=== PATIENT | female | born 1960 | race Caucasian/White ===

== ENCOUNTER → 2019-06-24 15:43 | Outpatient (CLI) | payer OTHER, MEDICAID, SELFPAY ==
[2019-06-24 16:52] LABS: Appearance Urine UA CLEAR; Bilirubin Urine UA NEGATIVE (NEGATIVE); Color Urine UA YELLOW; Glucose Urine UA NEGATIVE (Negative); Ketones Urine UA NEGATIVE (NEGATIVE); Leukocyte Esterase Urine UA NEGATIVE (NEGATIVE); Nitrite Urine UA POSITIVE (Negative); Occult Blood Urine UA 1+ (Negative); Protein Urine UA NEGATIVE (Negative); Specific Gravity Urine UA >=1.030 (1.000-1.035); Urobilinogen Urine UA 0.2 E.U./dL (0.2)
[2019-06-24 16:52] LABS: Add Manual Diff / Slide Review NO; Basophils Absolute Auto 100 /uL (0-100); Basophils Percent Auto 0.9 % (0-2); Eosinophils Absolute Auto 100 /uL (0-450); Eosinophils Percent Auto 0.9 % (2-4); Hematocrit 43.1 % (36-46); Hemoglobin 14.7 g/dL (12.0-16.0); Lymphocytes Absolute Auto 1900 /uL (1100-4500); Lymphocytes Percent Auto 29.2 % (25-40); Mean Corpuscular HGB Conc 34.1 % (30-36); Mean Corpuscular Hemoglobin 29.6 PG (26-34); Mean Corpuscular Volume 86.6 fL (80-100); Monocytes Absolute Auto 500 /uL (0-900); Monocytes Percent Auto 8.1 % (3-14); Neutrophils Absolute Auto 3900 /uL (1500-7000); Neutrophils Percent Auto 60.9 % (50-75); Platelet Count 248 X10^3/uL (150-400); Red Blood Cell Count 4.97 X10^6/uL (4.0-5.2); Red Cell Distribution Width 14.3 % (11.6-14.8); White Blood Cell Count 6.4 X10^3/uL (4.5-11.0)
[2019-06-24 17:02] LABS: Bacteria Urine Many (>30); Culture Indicated Urine Specimen Cultured; Mucus Urine 1+ (Negative); RBC Urine 1-5/HPF (0-5/HPF); Squamous Epithelial Cell Urine 1-5 /HPF (0-5/HPF); WBC Urine 0-1/HPF (0-5/HPF)
[2019-06-24 17:04] LABS: Hemoglobin A1C% w Est Avg Glu 5.2 % (4.0-6.0)
[2019-06-24 17:05] LABS: Alanine Aminotransferase 20 IU/L (<35); Albumin 4.5 g/dL (3.5-5.0); Albumin Globulin Ratio 1.3 (1.0-2.8); Alkaline Phosphatase 60 U/L (38-126); Aspartate Aminotransferase 23 IU/L (14-36); BUN Creatinine Ratio 26.7 (6-22); Bilirubin Total 0.6 mg/dL (0.2-1.3); Blood Urea Nitrogen 16 mg/dL (7-17); Calcium 9.6 mg/dL (8.4-10.2); Carbon Dioxide 29 mmol/L (22-32); Chloride 106 mmol/L (98-107); Cholesterol 260 mg/dL (140-199); Estimated Glomerular Filt Rate > 60.0 mL/min (>60); Globulin 3.6 g/dL (1.7-4.1); Glucose 97 mg/dL (80-110); HDL Cholesterol 34 mg/dL (40-60); HEMOLYSIS 17 (0-50); LDL Cholesterol Calculated 172 mg/dL (<100); Potassium 3.9 mmol/L (3.4-5.1); Sodium 142 mmol/L (137-145); Total Protein 8.1 g/dL (6.3-8.2); Triglycerides 270 mg/dL (35-150)
[2019-06-24 17:35] LABS: TSH w/ Reflex to FT4 2.42 uIU/mL (0.47-4.68)
== END ==
PROVIDERS: PCP Family Medicine; Visit Provider Family Medicine
DX: B37.9 Candidiasis, unspecified (principal); F41.9 Anxiety disorder, unspecified; R07.89 Other chest pain; Z76.89 Persons encountering health services in other specified circumstances
CPT/HCPCS: 36415; 80053; 80061; 81003; 81015; 83036; 84443; 85025; 86787; 87077; 87086; 87186

== ENCOUNTER → 2019-08-07 12:59 | Outpatient (CLI) | payer OTHER, MEDICAID, SELFPAY ==
--- NOTE | 2019-08-07 13:02 | DI.RAD.S_ITS ---
PROCEDURE: FL BARIUM SWALLOW W SPEECH INDICATIONS: Per Speech Therapist Evaluation TECHNIQUE: Examination was conducted in conjunction with speech pathology per standard protocol. In the lateral projection, filming was performed of the patient swallowing. AP projection filming may also be performed with patient swallowing. COMPARISON: None. FINDINGS: Function: The oral preparatory phase appears normal, with proper containment. The subsequent oral propulsive phase, pharyngeal phase, and esophageal phase of swallowing also appear normal with all proffered substances. No laryngotracheal penetration or aspiration. No pathologic vallecular pooling. Morphology: No cricopharyngeal bar is identified. No cervical esophageal webs. No Zenker's diverticulum. No strictures. Prior anterior fusion plate mid cervical spine, partially visualized. IMPRESSION: Normal examination. Please also refer to the dedicated speech therapy swallowing evaluation report which will be independently generated. Dictated by: Nitin Toledo M.D. on 08/07/2019 at 14:49 Approved by: Nitin Toledo M.D. on 08/07/2019 at 14:50
--- NOTE | 2019-08-07 15:28 | ST.SWALLOW ---
Visit Care Team Role Provider Type Geovani Bell DO Attending Provider Physician Primary Care Provider Referring Provider Specialty: [facility] Address: [address] [place] [address], [facility] Email: [email or web address] Modified Barium Swallow Study AIR VALUE TESTER Modified Barium Swallow Study Start: 08/08/19 08:09 Freq: Status: Active Protocol: Document 08/07/19 08:09 TLC (Rec: 08/08/19 08:12 TLC [id number]) Modified Barium Swallow Study Total Time Visit Start Time 13:30 Visit Stop Time 13:45 Total Visit Minutes [address] Geovani Bell Reason for Referral Dysphagia Setting Setting Outpatient Care Patient Information Identification Type Name Patient History Patient has been seen twice for outpatient speech therapy related to dysphagia and mild cognitive impairment. Specifically, she complains of coughing/choking on both liquids and solids. She had ACDF surgery in 2003; however, onset of symptoms began within the last year. Subjective Observations Patient arrived on time and was cooperative during the study. Patient Positioning Position View Lateral Imaging Lateral View Textures Administered Trials Presented Thin Liquid via Spoon,Thin Liquid via Cup,[place] Liquid via Spoon,[place] Liquid via Cup,Pudding Thick Liquid via Spoon,Dysphagia Blenderized Textures,Regular Textures Oral Phase Source: MBSIMP (TM) (C) Bolus Specific Scoring Grid Lip Closure No Impairment (WNL) Tongue Control During Bolus Hold Minimal Impairment Bolus Prep/Mastication No Impairment (WNL) Oral Residue No Impairment (WNL) Additional Oral Phase Observations Observed escape of thin liquid bolus to floor of mouth during bolus hold. No posterior escape of bolus. Mastication was timely and efficient; however, two swallows were required to clear 1/2 shortbread cookie. Initiation of pharyngeal swallow occurred at posterior angle of the ramus with the exception of consecutive thin liquids sips during which swallow initiation occurred when the bolus head reached the valleculae. Pharyngeal Phase Source: MBSIMP (TM) (C) Bolus Specific Scoring Grid Soft Palate Elevation No Impairment (WNL) Tongue Base Strength/Range of Motion No Impairment (WNL) Residue Along the Tongue Base Yes: Trace Laryngeal Elevation No Impairment (WNL) Anterior Hyoid Movement No Impairment (WNL) Epiglottic Range of Motion No Impairment (WNL) Vallecular Residue Yes: collection Laryngeal Vestibular Closure No Impairment (WNL) Pharyngeal Stripping Wave No Impairment (WNL) Upper Esophageal Sphincter Opening No Impairment (WNL) Residue in the Pyriform Sinuses No Additional Pharyngeal Phase Observations Soft palate elevation, laryngeal elevation, anterior hyoid excursion, epiglottic movement and laryngeal vestibular closure were all complete. A collection of residue appeared in the valleculae during larger sips and consecutive sips of liquids. Residue cleared with subsequent swallows. No pyriform sinus residue was observed; however trace residue lined the posterior pharyngeal wall at the level of C4-5 where prior anterior fusion plate was observed. Distention and duration of pharyngoesophageal segment opening were complete. No penetration or aspiration was observed during the study consistent with a PAS Scale Score of 1. A/P View Esophageal Observations Esophageal Function Not observed Clinical Impressions Findings Patient has functional swallow with mild pharyngeal residue in the valleculae and along posterior pharyngeal wall. No significant findings to explain patient's symptoms of coughing/choking on solids/ liquids. Recommendations Diet Liquids Order Thin Diet Order Regular Medication Recommendation As Tolerated Aspiration Precautions Recommended Precautions Upright at 90 Degrees,Small Bites/Sips,Double Swallow Treatment Plan Additional Recommendations/Comments Instructed patient to follow- up with outpatient ST for 1-2 sessions focused on education, review of results and recommended compensatory strategies.
== END ==
PROVIDERS: PCP Family Medicine; Referring Provider Family Medicine; Visit Provider Family Medicine
DX: R47.1 Dysarthria and anarthria (principal)
CPT/HCPCS: 74230; 92611

== ENCOUNTER 2019-08-14 12:30 | Outpatient (RCR) | payer OTHER, MEDICAID, SELFPAY ==
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
--- NOTE | 2019-08-22 14:24 | ST.OPTN ---
Visit Care Team Role Provider Type Geovani Bell DO Attending Provider Physician Primary Care Provider Referring Provider Address: [address] [place] [address], [id number] CREAM RIPENER Treatment Note CREAM RIPENER Treatment Note Start: 07/19/19 10:17 Freq: Status: Active Protocol: Document 08/22/19 14:23 LL (Rec: 08/22/19 14:24 LL [id number]) Speech Pathology Treatment Note Setting Treatment Setting Outpatient Care Visit Type Note Type Administrative Note General Information General Information Speech therapy will be placed on hold due to COVID-19 concerns. Will reschedule when deemed appropriate. CREAM RIPENER called patient to discuss therapy being placed on hold. Patient verbalized understanding and agreement with treatment plan.
--- NOTE | 2019-11-07 13:57 | ST.OPTN ---
Visit Care Team Role Provider Type Geovani Bell DO Attending Provider Physician Primary Care Provider Referring Provider Address: [address] [place] [address], [id number] STREETCAR OPERATOR Treatment Note STREETCAR OPERATOR Treatment Note Start: 07/19/19 10:17 Freq: Status: Active Protocol: Document 11/07/19 13:54 LL (Rec: 11/07/19 13:57 LL [id number]) Speech Pathology Treatment Note Visit Type Note Type Administrative Note General Information General Information Rebecca requested to place ST services on hold via phone call with scheduling staff on 10/31/2019. Rebecca stated that she is busy and would like to consult with her doctor before coming back to speech therapy.
== END 2020-07-13 14:57 ==
LOC: SP 12:30
PROVIDERS: PCP Family Medicine; Referring Provider Family Medicine; Visit Provider Family Medicine
DX: R47.1 Dysarthria and anarthria (principal)
CPT/HCPCS: 92507; 92526; 92610

== ENCOUNTER → 2019-09-25 16:26 | Outpatient (CLI) | payer OTHER, MEDICAID, SELFPAY ==
[2019-09-25 18:48] LABS: Influenza A - CEPHEID Flu A NEGATIVE (NEGATIVE); Influenza B - CEPHEID Flu B NEGATIVE (NEGATIVE)
[2019-09-27 09:03] LABS: COVID19 Sendout Not Detected (Not Detected)
== END ==
PROVIDERS: PCP Family Medicine; Visit Provider Family Medicine
DX: Z11.9 Encounter for screening for infectious and parasitic diseases, unspecified (principal)
CPT/HCPCS: 87502; 87635

== ENCOUNTER → 2019-11-28 08:05 | Outpatient (CLI) | payer OTHER, MEDICAID, SELFPAY ==
--- NOTE | 2019-11-28 08:07 | DI.US.S_ITS ---
ULTRASOUND OF LEFT BREAST AND AXILLA: 11/28/2019 CLINICAL: Patient returns today to evaluate a focal asymmetry in the left breast. Comparison is made to exam dated: 11/28/2019 [facility]. Color flow and real-time ultrasound of the left breast axilla were performed. Domingo scale images of the real-time examination were reviewed. There is a 1.3 cm x 1.1 cm x 0.4 cm irregular mass with an indistinct margin in the left breast at 8 o'clock middle depth 7 cm from the nipple. This irregular mass is hypoechoic. This likely correlates with mammography findings of possible solitary dilated duct. Color flow imaging demonstrates that there is adjacent vascularity. No significant abnormalities were seen sonographically in the left axilla. IMPRESSION: SUSPICIOUS OF MALIGNANCY The 1.3 cm x 1.1 cm x 0.4 cm irregular mass in the left breast likely correlates with mammographic abnormality and may represent a solitary dilated duct with internal solid component is suspicious of malignancy. An ultrasound guided biopsy is recommended. Findings and recommendations were discussed with the patient during today's visit by Dr. Martines. This exam was interpreted at Station ID: [id number]. Electronically Signed By: Ko Odell M.D. aty/:11/28/2019 11:38:48 letter sent: Biopsy Required Ultrasound BI-RADS: 4 Suspicious for malignancy
--- NOTE | 2019-11-28 08:07 | DI.US.S_ITS ---
ULTRASOUND OF RIGHT BREAST AND AXILLA: 11/28/2019 CLINICAL: Palpable right breast lump. Also, 2 findings on mammo. Comparison is made to exam dated: 11/28/2019 [facility]. Color flow and real-time ultrasound of the right breast axilla were performed. Domingo scale images of the real-time examination were reviewed. There is a 1 cm x 2.2 cm x 0.5 cm irregular mass with an indistinct and angular margins in the right breast at 7 o'clock anterior depth 3 cm from the nipple. This irregular mass is hypoechoic. This correlates with mammography findings. Color flow imaging demonstrates that there is vascularity present. There also is a benign 0.6 cm x 0.4 cm oval intradermal mass in the right axillary tail with the long axis parallel to the skin. This oval mass is hypoechoic. This correlates as palpated, with mammography findings, and area of clinical concern. Color flow imaging demonstrates that there is no vascularity present. Additionally, there is no sonographic correlate or abnormalities seen in the right breast at 6 o'clock middle depth to correspond with loosely grouped coarse calcifications seen on today's mammogram. No significant abnormalities were seen sonographically in the right axilla. IMPRESSION: SUSPICIOUS OF MALIGNANCY The 1 cm x 2.2 cm x 0.5 cm irregular mass in the right breast at 7 o'clock anterior depth may represent solid components within a dilated duct or extraductal solid mass and is suspicious of malignancy. An ultrasound guided biopsy is recommended. The 0.6 cm x 0.4 cm oval mass in the right axillary tail is intradermal in location and benign. However, recommend continued clinical follow up. There is no sonographic abnormality to correlate with loosely grouped coarse calcifications in the middle to posterior depth of the inferior right breast and is probably benign. A 6 months follow up right mammogram is recommended. Findings and recommendations were discussed with the patient during today's visit by Dr. Martines. This exam was interpreted at Station ID: [id number]. Electronically Signed By: Ko Odell M.D. aty/:11/28/2019 11:50:15 letter sent: Biopsy Required Ultrasound BI-RADS: 4 Suspicious for malignancy
--- NOTE | 2019-11-28 08:07 | DI.MG.S_ITS ---
BILATERAL DIGITAL DIAGNOSTIC MAMMOGRAM 3D/2D: 11/28/2019 CLINICAL: Right skin lesion, bilateral breast pain. Baseline. Family history of breast cancer. No prior exams were available for comparison. There are scattered fibroglandular elements in both breasts. There is a 1 cm x 1.5 cm irregular equal density mass with coarse calcifications in the right breast at 6 o'clock anterior depth. There also is a 0.7 cm oval focal asymmetry in the right axillary tail. This correlates as palpated and with area of clinical concern. This focal asymmetry appears to be a skin lesion. Additionally, there are grouped coarse calcifications in the right breast at 6 o'clock middle depth. There is an equal density solitary duct in the left breast at 7 o'clock anterior depth. No other significant masses or calcifications are seen in either breast. IMPRESSION: INCOMPLETE: NEEDS ADDITIONAL IMAGING EVALUATION 1. The 1 cm x 1.5 cm irregular equal density mass in the right breast at 6 o'clock anterior depth is indeterminate. An ultrasound is recommended for further evaluation and is scheduled to immediately follow this study. 2. The 0.7 cm oval focal asymmetry in the right axillary tail most likely is a skin lesion and is indeterminate. An ultrasound is recommended for further evaluation and is scheduled to immediately follow this study. 3. The grouped coarse calcifications in the right breast at 6 o'clock middle depth are probably benign. Follow up right mammogram in 6 months is recommended. 4. The equal density duct in the left breast at 7 o'clock anterior depth is indeterminate. An ultrasound is recommended for further evaluation and is scheduled to immediately follow this study. This exam was interpreted at Station ID: [id number]. NOTE: For mammograms, a report in lay terms will be sent to the patient. Approximately 15% of breast malignancies will not be visualized mammographically. In the management of a palpable breast mass, a negative mammogram must not discourage biopsy of a clinically suspicious lesion. Electronically Signed By: Ko Odell M.D. aty/:11/28/2019 11:22:36 ACR BI-RADS Category 0: Incomplete [id number]
== END ==
PROVIDERS: PCP Family Medicine; Referring Provider Family Medicine; Visit Provider Family Medicine
DX: R92.8 Other abnormal and inconclusive findings on diagnostic imaging of breast (principal); N64.4 Mastodynia; N63.24 Unspecified lump in the left breast, lower inner quadrant; N63.13 Unspecified lump in the right breast, lower outer quadrant; Z80.3 Family history of malignant neoplasm of breast
CPT/HCPCS: 76642; 77066; G0279

== ENCOUNTER → 2019-12-17 11:43 | Outpatient (CLI) | payer OTHER, MEDICAID, SELFPAY ==
[2019-12-17 12:06] LABS: WBC Urine None Seen (0-5/HPF)
[2019-12-17 12:58] LABS: Hemoglobin A1C% w Est Avg Glu 5.6 % (4.0-6.0)
[2019-12-17 13:05] LABS: Appearance Urine UA CLEAR; Bilirubin Urine UA NEGATIVE (NEGATIVE); Color Urine UA YELLOW; Glucose Urine UA NEGATIVE (Negative); Ketones Urine UA NEGATIVE (NEGATIVE); Leukocyte Esterase Urine UA NEGATIVE (NEGATIVE); Nitrite Urine UA NEGATIVE (Negative); Occult Blood Urine UA 1+ (Negative); Protein Urine UA NEGATIVE (Negative); Specific Gravity Urine UA 1.025 (1.000-1.035); Urobilinogen Urine UA 0.2 E.U./dL (0.2)
[2019-12-17 13:08] LABS: Alanine Aminotransferase 18 IU/L (<35); Albumin 4.4 g/dL (3.5-5.0); Albumin Globulin Ratio 1.5 (1.0-2.8); Alkaline Phosphatase 59 U/L (38-126); Aspartate Aminotransferase 23 IU/L (14-36); BUN Creatinine Ratio 26.3 (6-22); Bilirubin Total 0.7 mg/dL (0.2-1.3); Blood Urea Nitrogen 15 mg/dL (7-17); Calcium 10.1 mg/dL (8.4-10.2); Carbon Dioxide 28 mmol/L (22-32); Chloride 104 mmol/L (98-107); Cholesterol 278 mg/dL (140-199); Estimated Glomerular Filt Rate > 60.0 mL/min (>60); Globulin 2.9 g/dL (1.7-4.1); Glucose 89 mg/dL (80-110); HDL Cholesterol 34 mg/dL (40-60); HEMOLYSIS < 15 (0-50); Potassium 4.2 mmol/L (3.4-5.1); Sodium 139 mmol/L (137-145); Total Protein 7.3 g/dL (6.3-8.2); Triglycerides 457 mg/dL (35-150)
[2019-12-17 13:19] LABS: Bacteria Urine Occasional (0-1); Culture Indicated Urine Cult Not Indicated; RBC Urine 0-1/HPF (0-5/HPF)
[2019-12-17 13:51] LABS: TSH w/ Reflex to FT4 3.14 uIU/mL (0.47-4.68)
== END ==
PROVIDERS: PCP Family Medicine; Referring Provider Family Medicine; Visit Provider Family Medicine
DX: E78.5 Hyperlipidemia, unspecified (principal); R32 Unspecified urinary incontinence
CPT/HCPCS: 36415; 80053; 80061; 81001; 83036; 84443

== ENCOUNTER → 2019-12-23 07:59 | Outpatient (CLI) | payer OTHER, MEDICAID, SELFPAY ==
--- NOTE | 2019-12-23 | DI.MG.S_ITS ---
UNILATERAL LEFT DIGITAL DIAGNOSTIC MAMMOGRAM POST-NEEDLE BIOPSY: 12/23/2019 CLINICAL: Left breast mass. Post clip placement. Comparison is made to exams dated: 12/23/2019 ultrasound biopsy, 11/28/2019 ultrasound, and 11/28/2019 mammogram - [facility]. There are scattered fibroglandular elements in left breast. There is a marker clip in the position of biopsy in the left breast at 8 o'clock middle depth. This marker clip placement is at the biopsy site, confirmed with US after the biopsy was performed. However, the mammogram from 11/28/19 appears to show the area of linear mammographic concern to be positioned more anteriorly than the site of US biopsy, with reference to the Vision marker. IMPRESSION: POST PROCEDURE MAMMOGRAM FOR MARKER PLACEMENT There was a successful biopsy marker placement in the left breast middle depth at the site of sonographically directed biopsy today, but the site of marker does not conform with the site of mammographic abnormality. A second look US is recommended to evaluate for possible sonographically visible mass more anteriorly that would correlate with the mammographic finding. A followup stereotactic guided biopsy may become necessary if the more anterior mammographic abnormality cannot be located with US. Please note that the patient originally was scheduled for a same-day right side breast biopsy which she requested to reschedule for the near term. This should be scheduled within 1-2 weeks. This exam was interpreted at Station ID: [id number]. NOTE: For mammograms, a report in lay terms will be sent to the patient. Approximately 15% of breast malignancies will not be visualized mammographically. In the management of a palpable breast mass, a negative mammogram must not discourage biopsy of a clinically suspicious lesion. Electronically Signed By: Nitin Toledo M.D. [facility]/:12/24/2019 07:27:54 ACR BI-RADS Category Post-procedure mammogram for marker placement
--- NOTE | 2019-12-23 | PATH_ITS ---
[facility] Accession Number: [id number] . 01 Material submitted: . breast - LEFT BREAST 8:00 7CMFN . 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 Negative for invasive carcinoma. MRV 12/30/2019 1406 Local . 01 Comment: As part of routine software quality test engineer, Dr. Wbeb has reviewed this case and agrees with the diagnosis of LCIS involving ductules. The preliminary findings of in situ carcinoma was reported to ANA Ashby via her biomedical equipment technician by Dr. Massey on 12/27/2019. . 01 Electronically signed: . Kris Massey MD, PhD, Pathologist NPI- [id number] . 01 Gross description: . Received one formalin-filled container, labeled with the patient's name and labeled left breast. The specimen is received with a plastic filter in container, sample loose in container and consists of multiple fragments of yellow-miller soft tissue which range in size from less than 0.1 cm to 0.8 x 0.4 x 0.4 cm. The specimen is filtered, wrapped, and entirely submitted in one cassette. Collection date per requisition: 12/23/19. Possible collection time, as container leaked in transit, appears to be 8:30. Total fixation time: Approximately 18 hours. ([id number]) /[facility] 12/24/2019 0222 Local . 01 Microscopic: . Sections are of breast parenchyma with ductal units expanded by relatively bland epithelioid cells in a solid growth pattern. No invasive carcinoma is identified. To further classify the ductal epithelioid cells, an e-cadherin immunohistochemical is performed. The epithelioid cells within the center of the ducts are negative for e-cadherin immunoreactivity, with intact expression of the peripheral ductal epithelium. A control stain shows appropriate reactivity. The morphology and immunohistochemical profile are consistent with expansion of the ducts by lobular carcinoma in situ. . 01 Pathologist provided ICD-10: D05.02 . 01 CPT . 639423, [id number] Performed at: [address] [facility] [place], [place], [place] [id number] MD Augustine Younger MD Phone: [phone]
--- NOTE | 2019-12-23 08:02 | DI.US.S_ITS ---
ULTRASOUND GUIDED BIOPSY LEFT BREAST USING VACUUM DEVICE WITH MARKING DEVICE INSERTED AND POST DIGITAL MAMMOGRAPHIC AND ULTRASOUND IMAGIN12/23/2019 CLINICAL: Left breast abnormal ultrasound. PATIENT CONSENT: Risks (minor bleeding, infection, vasovagal reaction and repeat procedure), benefits and alternatives were explained to the patient and written informed consent was obtained. Correlation is made to exams dated: 11/28/2019 ultrasound, 11/28/2019 ultrasound, 11/28/2019 mammogram - [facility], 01/06/2010 mammogram - [facility], 09/09/2005 mammogram, and 03/26/2004 mammogram - [facility]. An ultrasound guided biopsy using real-time ultrasound was performed for the concerning 1.4 cm x 0.5 cm x 0.7 cm indistinct irregular shaped mass located in the left breast at 8 o'clock middle depth. This was described on the previous ultrasound report. The skin was prepped in the usual manner. Local anesthetic was administered to the access site. A skin carlos was made in the breast. The abnormality was approached from the medial aspect. A 10 gauge biopsy needle was placed adjacent to the abnormality under ultrasound guidance. Once the needle was documented to be in the correct location, four specimens were obtained using the Mammotome biopsy system. Lidocaine was used superficially, and lidocaine with epinephrine was used for anesthesia adjacent to the mass. A Vision marker clip was inserted into the biopsy site. A skin closure strip and a sterile dressing were applied to the access site. Ultrasound imaging demonstrated the biopsy location marker at the targeted area, but the followup digital mammogram appears to show the marker more posteriorly from the linear medial left breast density seen by mammogram 11/28/19. This raises concern that a sonographically visible site was biopsied but the mammographically visible site was not. The specimens were sent to the laboratory for pathological analysis. IMPRESSION: ULTRASOUND GUIDED BIOPSY HIGH RISK BENIGN The biopsy procedure today was originally scheduled to include bilateral biopsies. The patient requested to return in the near term for her second biopsy, on the right, and will arrange scheduling of that second procedure. Ultrasound guided biopsy of the 1.4 cm x 0.5 cm x 0.7 cm mass in the left breast at 8 o'clock middle depth was successful, however the clip placement does not correspond to the area of mammographic concern, and the sonographic and mammographic findings may represent separate lesions. Pathology indicates high risk benign noninvasive lobular carcinoma in-situ (LCIS). Pathology results are concordant with imaging findings. A surgical consultation is recommended once the full bilateral breast workup is complete. The patient's left breast should be rescanned for a more anterior lesion that could represent the area of mammographic concern separate from the location of the new US-directed biopsy site marker. If that cannot be located by US then biopsy of the more anterior linear mammographically visible structure may require stereotactic guidance. Additionally, MRI may be considered to yield additional information in the workup of bilateral breast lesions. This exam was interpreted at Station ID: [id number]. Nitin Kirk M.D. [facility]/:01/02/2020 11:34:48
== END ==
PROVIDERS: PCP Family Medicine; Referring Provider Nurse Practitioner Family; Visit Provider Nurse Practitioner Family
DX: D05.02 Lobular carcinoma in situ of left breast (principal)
CPT/HCPCS: 19083; 77065

== ENCOUNTER → 2020-01-10 12:34 | Outpatient (CLI) | payer OTHER, MEDICAID, SELFPAY ==
--- NOTE | 2020-01-10 | PATH_ITS ---
[facility] Accession Number: [id number] . 01 Material submitted: . breast - RT BREAST 7:00 3 CM FN . 02 Diagnosis: Right Breast, 7 o'clock, 3 cm from Nipple, Needle Core Biopsies: Intraductal papilloma; negative for atypia. Background breast parenchyma with focal sclerosing adenosis and areas of fibrocystic change. Negative for in situ or invasive carcinoma. V 01/14/2020 1706 Local . 02 Comment: As part of routine clinical quality manager, Dr. Dunn has reviewed this case and agrees with the diagnosis above. . 02 Electronically signed: . Kris Massey MD, PhD, Pathologist NPI- [id number] . 01 Gross description: . Received in formalin, labeled RT breast biopsy, are six pieces of miller adipose tissue measuring 1.2 x 0.3 x 0.1 cm to 0.6 x 0.3 x 0.2 cm. All six pieces are entirely submitted in cassettes A1 and A2, with three pieces per cassette. The collection date and time are listed as January 10, 2020 at 7:00 for an approximate fixation time of 26 hours. ([id number]) /[facility] 01/11/2020 0859 Local . 02 Microscopic: . Within a focus of usual ductal hyperplasia (block A1), an E. Cadherin stain shows diffuse reactivity, excluding the possibility of lobular carcinoma involving ductules. A focus of sclerosing adenosis (block A2) shows intact myoepithelial cell layer on p63 and myosin immunohistochemical stains; exluding invasive carcinoma. All control stain show appropriate reactivity. . * This test was developed and its performance characteristics determined by [employer]. It has not been cleared or approved by the U.S. Food and Drug Administration. The FDA has determined that such clearance or approval is not necessary. This test is used for clinical purposes. It should not be regarded as investigational or for research. . 02 Pathologist provided ICD-10: N60.19, D24.9 . 02 CPT . 792409, W56274, W06332 Performed at: [facility] [address] [place] [address], [place], [place] [id number] MD Augustine Younger MD Phone: [phone] Performed at: [address] [id number] MD Dena Dunn MD Phone: [phone]
--- NOTE | 2020-01-10 12:37 | DI.MG.S_ITS ---
UNILATERAL RIGHT DIGITAL DIAGNOSTIC MAMMOGRAM POST-NEEDLE BIOPSY: 01/10/2020 CLINICAL: Right breast mass. Comparison is made to exams dated: 11/28/2019 mammogram - [facility], 01/06/2010 mammogram - , 09/09/2005 mammogram, and 11/28/2019 ultrasound - [facility]. There are scattered fibroglandular elements in right breast. There is a marker clip in the appropriate position in the right breast at 7 o'clock middle depth. The marker clip placement is at the biopsy site. The marker clip corresponds to the sonographic abnormality identified on 11/28/2019 , but is posterior to the mammographic abnormality identified 11/28/2019. IMPRESSION: POST PROCEDURE MAMMOGRAM FOR MARKER PLACEMENT There was a successful marker clip placement in the right breast middle depth at biopsy site. The marker clip placement is at the biopsy site. The marker clip corresponds to the sonographic abnormality identified on 11/28/2019 , but is posterior to the mammographic abnormality identified 11/28/2019. Future imaging is recommended as follows: 05/29/2020 follow-up right mammogram. This exam was interpreted at Station ID: [id number]. NOTE: For mammograms, a report in lay terms will be sent to the patient. Approximately 15% of breast malignancies will not be visualized mammographically. In the management of a palpable breast mass, a negative mammogram must not discourage biopsy of a clinically suspicious lesion. Electronically Signed By: Janessa Andres M.D. [facility]/:01/10/2020 15:16:48 ACR BI-RADS Category Post-procedure mammogram for marker placement
--- NOTE | 2020-01-10 12:38 | DI.US.S_ITS ---
PROCEDURE: US BX BREAST PERC W VAC DEVICE COMPARISON: None. INDICATIONS: ABNORMAL AND INCLUSIVE FINDINGS FINDINGS: IMPRESSION: Dictated by: Janessa Andres MD, PhD on 01/10/2020 at 15:02 Approved by: Janessa Andres MD, PhD on 01/10/2020 at 15:03
--- NOTE | 2020-01-10 13:09 | DI.US.S_ITS ---
Patient Name: STEPHON JENNINGS date: 1960 Sex: F Attending Physician: Matthew Indications: Date: 01/10/2020 15:35 At the request of: BRADY HAYES Procedure: US bx breast perc w vac device ULTRASOUND GUIDED BIOPSY RIGHT BREAST USING VACUUM DEVICE WITH MARKING DEVICE INSERTED AND POST DIGITAL MAMMOGRAPHIC IMAGIN01/10/2020 CLINICAL: Right breast mass b/x w/ clip placement. PATIENT CONSENT: Risks (minor bleeding, infection, vasovagal reaction and repeat procedure), benefits and alternatives were explained to the patient and written informed consent was obtained. Correlation is made to exams dated: 01/10/2020 mammogram, 12/23/2019 mammogram, 12/23/2019 ultrasound biopsy, 11/28/2019 ultrasound, 11/28/2019 ultrasound, and 11/28/2019 mammogram - [facility]. An ultrasound guided biopsy using real-time ultrasound was performed for the 2.2 cm x 1.8 cm x 0.9 cm indistinct irregular shaped mass located in the right breast at 7 o'clock anterior depth 3 cm from the nipple. This previously correlated with the palpable abnormality. This was described on the previous ultrasound report. The skin was prepped in the usual manner. A 13 gauge biopsy needle was placed adjacent to the abnormality under ultrasound guidance. Once the needle was documented to be in the correct location, four cores were obtained using the Mammotome biopsy system. A [employer] Vision clip was inserted into the biopsy cavity. Post procedure digital mammographic imaging demonstrates the location device at the targeted area. The specimens were sent to the laboratory for pathological analysis. IMPRESSION: ULTRASOUND GUIDED BIOPSY BENIGN Ultrasound guided biopsy of the 2.2 cm palpable mass in the right breast at 7 o'clock anterior depth 3 cm from the nipple was successful. Pathology indicates benign intraductal papilloma (IP). No atypia. Pathology results are concordant with imaging findings. A 6 month follow-up mammogram and ultrasound are recommended for this abnormality. Continued Report - Page 2 of 2 Patient Name: STEPHON JENNINGS date: 1960 Sex: F Attending Physician: Matthew Indications: Date: 01/10/2020 15:35 At the request of: BRADY HAYES Procedure: US bx breast perc w vac device Please note the post-biopsy marker clip was at the site of the sonographic abnormality identified 11/28/2019, but is posterior to the mammographic abnormality identified 11/28/2019. An immediate second look targeted ultrasound of the right breast is recommended to evaluate at 6-7:00 o'clock anterior depth. If a second abnormality is not seen sonographically, stereotactic biopsy of the right breast may be warranted. Future imaging is recommended as follows: 05/29/2020 follow-up right mammogram for probably benign grouped calcifications. Additionally, recent left biopsy demonstrating high risk lesion. Please see separately dictated report and recommendations. This exam was interpreted at Station ID: [id number]. Janessa Tavares M.D. [facility]/:01/16/2020 10:42:14
== END ==
PROVIDERS: PCP Family Medicine; Referring Provider Family Medicine; Visit Provider Nurse Practitioner Family
DX: D24.1 Benign neoplasm of right breast (principal); N60.21 Fibroadenosis of right breast
CPT/HCPCS: 19083; 77065

== ENCOUNTER → 2020-02-28 10:51 | Outpatient (CLI) | payer OTHER, MEDICAID, SELFPAY ==
--- NOTE | 2020-02-28 10:54 | DI.RAD.S_ITS ---
PROCEDURE: XR LUMBAR SPINE 2-3V INDICATIONS: LOW BACK PAIN chronic TECHNIQUE: 5 views of the lumbar spine were acquired. COMPARISON: None. FINDINGS: Bones: 5 [id number] vertebrae are present. There is normal bony alignment. No acute vertebral body compression fractures. Mild multilevel spondylitic changes. Subtle lucency involving the anterior aspect of L2 with decreased conspicuity of the anterior vertebral body cortex. This may be artifactual from overlying bowel gas. No other suspicious bony lesions. Soft tissues: Overlying bowel gas pattern is normal. No suspicious soft tissue calcifications. IMPRESSION: 1. Lumbar spine without acute fracture. 2. Subtle lucency with possible thinning of the anterior cortex involving the anterior vertebral body of L2 which may be artifactual versus focal lytic lesion. Recommend further evaluation with advanced cross-sectional imaging (CT or MRI). 3. Multilevel lumbar spondylosis and facet arthropathy. Dictated by: Ko Odell M.D. on 02/28/2020 at 13:58 Approved by: Ko Odell M.D. on 02/28/2020 at 14:32
== END ==
PROVIDERS: PCP Family Medicine; Referring Provider Family Medicine; Visit Provider Family Medicine
DX: M54.5 Low back pain; M47.816 Spondylosis without myelopathy or radiculopathy, lumbar region; M54.30 Sciatica, unspecified side; G89.29 Other chronic pain
CPT/HCPCS: 72100

== ENCOUNTER → 2020-03-04 10:02 | Outpatient (CLI) | payer OTHER, MEDICAID, SELFPAY ==
[2020-03-04 11:21] LABS: Alanine Aminotransferase 27 IU/L (<35); Albumin 4.4 g/dL (3.5-5.0); Albumin Globulin Ratio 1.3 (1.0-2.8); Alkaline Phosphatase 66 U/L (38-126); Aspartate Aminotransferase 27 IU/L (14-36); Bilirubin Total 0.8 mg/dL (0.2-1.3); Blood Urea Nitrogen 11 mg/dL (7-17); Calcium 9.8 mg/dL (8.4-10.2); Carbon Dioxide 31 mmol/L (22-32); Chloride 104 mmol/L (98-107); Cholesterol 257 mg/dL (140-199); Estimated Glomerular Filt Rate > 60.0 mL/min (>60); Globulin 3.5 g/dL (1.7-4.1); Glucose 105 mg/dL (80-110); HDL Cholesterol 39 mg/dL (40-60); HEMOLYSIS < 15 (0-50); LDL Cholesterol Calculated 160 mg/dL (<100); Potassium 4.3 mmol/L (3.4-5.1); Sodium 141 mmol/L (137-145); Total Protein 7.9 g/dL (6.3-8.2); Triglycerides 291 mg/dL (35-150)
[2020-03-04 11:52] LABS: TSH w/ Reflex to FT4 3.09 uIU/mL (0.47-4.68)
== END ==
PROVIDERS: PCP Family Medicine; Referring Provider Family Medicine; Visit Provider Family Medicine
DX: E78.5 Hyperlipidemia, unspecified (principal); R92.8 Other abnormal and inconclusive findings on diagnostic imaging of breast; S39.012A Strain of muscle, fascia and tendon of lower back, initial encounter
CPT/HCPCS: 36415; 80053; 80061; 84443

== ENCOUNTER → 2020-03-13 09:34 | Outpatient (CLI) | payer OTHER, MEDICAID, SELFPAY ==
--- NOTE | 2020-03-13 09:37 | DI.CT.S_ITS ---
PROCEDURE: CT LUMBAR SPINE WO CON INDICATIONS: Persistent lower back pain TECHNIQUE: Noncontrast 3 mm thick sections acquired from the T12 level to the sacrum. Sagittal and coronal reformats were constructed. For radiation dose reduction, the following was used: automated exposure control. COMPARISON: [facility], CR, XR LUMBAR SPINE 2-3V, 02/28/2020, 10:52. FINDINGS: Image quality: Excellent. Bones: Scrutiny is given to the L2 vertebral body, at the site of the apparent lucency on the recent prior radiograph. This level appears normal, without lytic lesions. No suspicious lytic or blastic lesions can be seen elsewhere. There is normal bony alignment. No acute vertebral body compression fractures. Central spinal caliber is of normal overall caliber. No pars defects. T12-L1: Normal. L1-L2: Normal. L2-L3: Normal. L3-L4: Mild loss of disc height is seen. Moderate disc bulge is seen, with a mild central disc protrusion. At least moderate facet hypertrophy is seen. Mild to moderate bilateral neural foraminal narrowing can be seen. At least moderate central canal narrowing is seen. L4-L5: The disc height is well preserved. At least moderate disc bulge is seen, with a central disc protrusion. At least moderate facet hypertrophy is seen. There is at least moderate bilateral neural foraminal narrowing seen at this level. At least moderate central canal narrowing is seen. L5-S1: The disc height is well preserved. Mild disc bulge is seen. Moderate facet hypertrophy is seen, right worse than left. Moderate bilateral neural foraminal narrowing can be seen, left worse than right. Mild central canal narrowing is seen. Soft tissues: No retroperitoneal masses or hematomas. Visualized aorta is normal in caliber. This IMPRESSION: Normal appearing L2 vertebral body, without lucent lesions seen. The recent prior radiograph appearance is attributed to artifact. Lower lumbar spine degenerative changes are seen, which are most prominent at the L4-5 level. Dictated by: Altaf Chapman M.D. on 03/13/2020 at 12:01 Approved by: Altaf Chapman M.D. on 03/13/2020 at 12:04
== END ==
PROVIDERS: PCP Family Medicine; Referring Provider Family Medicine; Visit Provider Family Medicine
DX: S39.012A Strain of muscle, fascia and tendon of lower back, initial encounter (principal); M47.816 Spondylosis without myelopathy or radiculopathy, lumbar region; X58.XXXA Exposure to other specified factors, initial encounter
CPT/HCPCS: 72131

== ENCOUNTER 2020-04-16 08:15 | Outpatient (RCR) | payer OTHER, MEDICAID, SELFPAY ==
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
== END 2020-07-29 08:07 ==
LOC: PHYS 08:15
PROVIDERS: PCP Family Medicine; Referring Provider Family Medicine; Visit Provider Family Medicine
DX: S39.012A Strain of muscle, fascia and tendon of lower back, initial encounter (principal); R53.1 Weakness; R26.2 Difficulty in walking, not elsewhere classified; G89.4 Chronic pain syndrome
CPT/HCPCS: 97010; 97110; 97140; 97162; 97163; 97535

== ENCOUNTER → 2020-06-26 11:31 | Outpatient (CLI) | payer OTHER, MEDICAID, SELFPAY | PROVIDERS: PCP Family Medicine; Visit Provider Nurse Practitioner Family | DX: N89.8 Other specified noninflammatory disorders of vagina (principal) | CPT/HCPCS: 87210 ==

== ENCOUNTER → 2020-07-23 08:50 | Outpatient (CLI) | payer OTHER, SELFPAY ==
--- NOTE | 2020-07-23 | DI.RAD.S_ITS ---
PROCEDURE: XR KNEE LT 1TO2V INDICATIONS: Low back pain/Pain in unspecified knee TECHNIQUE: 2 views of the knee were acquired. COMPARISON: None. FINDINGS: Bones: No fractures or dislocations. Mild tricompartmental degenerative changes of the left knee. No suspicious bony lesions. Soft tissues: No joint effusion. No suspicious soft tissue calcifications. IMPRESSION: Left knee without acute fracture or dislocation. Mild tricompartmental degenerative change. Dictated by: Ko Odell M.D. on 07/23/2020 at 11:30 Approved by: Ko Odell M.D. on 07/23/2020 at 11:31
--- NOTE | 2020-07-23 | DI.RAD.S_ITS ---
PROCEDURE: XR LUMBAR SPINE 2-3V INDICATIONS: Low back pain/Pain in unspecified knee TECHNIQUE: 2 views of the lumbar spine were acquired. COMPARISON: [facility], CT, CT LUMBAR SPINE WO CON, 03/13/2020, 10:13. [facility], CR, XR LUMBAR SPINE 2-3V, 02/28/2020, 10:52. FINDINGS: Bones: 5 [id number] vertebrae are present. There is normal bony alignment. No acute vertebral body compression fractures. No suspicious bony lesions. Multilevel lumbar spondylitic changes most pronounced at L4-5 and L5-S1. There is mid and lower lumbar facet arthropathy, not significantly changed. Soft tissues: Overlying bowel gas pattern is normal. No suspicious soft tissue calcifications. IMPRESSION: Multilevel lumbar spondylosis most pronounced at L4-5 and L5-S1. No acute osseous abnormalities seen. Dictated by: Ko Odell M.D. on 07/23/2020 at 11:31 Approved by: Ko Odell M.D. on 07/23/2020 at 11:34
== END ==
PROVIDERS: PCP Family Medicine
DX: M25.562 Pain in left knee (principal); M54.5 Low back pain
CPT/HCPCS: 72100; 73560

== ENCOUNTER → 2020-07-27 11:49 | Outpatient (CLI) | payer OTHER, MEDICAID, SELFPAY ==
--- NOTE | 2020-07-27 11:51 | DI.MRI.S_ITS ---
BREAST MRI OF BOTH BREASTS- WITH CAD: 07/27/2020 CLINICAL: [facility]. Non healing breast wound. The patient was placed prone in a dedicated breast imaging coil. Precontrast axial STIR and 3D FLASH without fat saturation sequences were obtained. Both before and after bolus injection of contrast, sequential 1-minute axial 3D FLASH with fat saturation sequences for 3 time points, with subtraction images and maximum intensity projections (MIP's) generated. Delayed sagittal FLASH images with fat saturation were also obtained. Computer-aided detection, including computer algorithm analysis of MRI image data for lesion detection and characterization, pharmacokinetic analysis, with further physician review for interpretation, was performed. COMPARISON: [facility], , MM DIAGNOSTIC MAMMO UNILAT RT2D, 01/10/2020, 14:06. [facility], US BX BREAST PERC W VAC DEVICE, 12/23/2019, 10:47. [facility], BREAST RT LIMITED, 11/28/2019, 9:41. [facility], BREAST LT LIMITED, 11/28/2019, 9:41. FINDINGS: Image quality: Excellent. There is mild background parenchymal enhancement. Right breast: No suspicious focus of enhancement. Mildly enhancing and previously biopsied intraductal papilloma in the inferior right breast, with an associated biopsy clip. No right axillary lymphadenopathy or internal mammary lymphadenopathy. Left breast: No suspicious focus of enhancement. No right axillary or internal mammary lymphadenopathy. IMPRESSION: NEGATIVE Normal bilateral breast MRI. Return to annual mammogram screening schedule is recommended. COMMENT: The imaging literature indicates that a negative contrast breast MRI examination has a high sensitivity and a moderate specificity for detecting and excluding invasive carcinomas to a detection threshold of 3-5 mm; nonetheless, appropriate clinical and mammographic follow-up are recommended. MRI is not sensitive for detecting DCIS (ductal carcinoma in situ) and may not detect large invasive neoplasms that show only minimal enhancement such as mucinous carcinoma. If there are suspicious calcifications or clinically worrisome palpable masses, then biopsy should still be considered. Invasive neoplasms can be hidden by co-existent and benign enhancement caused by mastitis, hormone therapy effects, radiation therapy, , and recent biopsy or surgery. False positive examinations can occur in a number of circumstances, including breasts that have recently been subject to invasive procedures and those that contain atypical ductal hyperplasia, hormonally stimulated glandular tissue, fat necrosis, or radial scars. This exam was interpreted at Station ID: [id number]. Electronically Signed By: Kevin Martines M.D. jr/:07/27/2020 14:19:00 letter sent: Normal Exam ACR BI-RADS Category 1: Negative 3341F
== END ==
PROVIDERS: PCP Family Medicine; Referring Provider Surgery; Visit Provider Surgery
DX: D05.02 Lobular carcinoma in situ of left breast (principal); N61.1 Abscess of the breast and nipple; T81.89XA Other complications of procedures, not elsewhere classified, initial encounter
CPT/HCPCS: 77049; A9579

== ENCOUNTER → 2022-07-07 07:05 | Outpatient (CLI) | payer MEDICARE, MEDICAID, SELFPAY ==
[2022-07-07 09:53] LABS: Add Manual Diff / Slide Review NO; Basophils Absolute Auto 0 /uL (0-100); Basophils Percent Auto 0.3 % (0-2); Eosinophils Absolute Auto 200 /uL (0-450); Eosinophils Percent Auto 2.5 % (2-4); Hematocrit 42.7 % (36-46); Hemoglobin 14.2 g/dL (12.0-16.0); Lymphocytes Absolute Auto 2300 /uL (1100-4500); Lymphocytes Percent Auto 32.3 % (25-40); Mean Corpuscular HGB Conc 33.2 % (30-36); Mean Corpuscular Hemoglobin 28.3 PG (26-34); Mean Corpuscular Volume 85.2 fL (80-100); Monocytes Absolute Auto 600 /uL (0-900); Neutrophils Absolute Auto 4000 /uL (1500-7000); Neutrophils Percent Auto 55.9 % (50-75); Platelet Count 221 X10^3/uL (150-400); Red Blood Cell Count 5.02 X10^6/uL (4.0-5.2); Red Cell Distribution Width 15.1 % (11.6-14.8); White Blood Cell Count 7.2 X10^3/uL (4.5-11.0)
[2022-07-07 10:55] LABS: Alanine Aminotransferase 17 IU/L (<35); Albumin 4.2 g/dL (3.5-5.0); Albumin Globulin Ratio 1.4 (1.0-2.8); Alkaline Phosphatase 59 U/L (38-126); Aspartate Aminotransferase 18 IU/L (14-36); BUN Creatinine Ratio 17.7 (6-22); Bilirubin Total 0.8 mg/dL (0.2-1.3); Blood Urea Nitrogen 11 mg/dL (7-17); Calcium 9.4 mg/dL (8.4-10.2); Carbon Dioxide 31 mmol/L (22-32); Chloride 102 mmol/L (98-107); Cholesterol 252 mg/dL (140-199); Estimated Glomerular Filt Rate > 60 mL/min (>60); Glucose 87 mg/dL (80-110); HDL Cholesterol 37 mg/dL (40-60); HEMOLYSIS < 15 (0-50); LDL Cholesterol Calculated 167 mg/dL (<100); Potassium 4.4 mmol/L (3.4-5.1); Sodium 140 mmol/L (137-145); Total Protein 7.2 g/dL (6.3-8.2); Triglycerides 242 mg/dL (35-150)
[2022-07-07 11:19] LABS: Thyroid Stimulating Hormone 3.74 uIU/mL (0.47-4.68)
== END ==
PROVIDERS: PCP Family Medicine; Referring Provider Family Medicine; Visit Provider Family Medicine
DX: Z00.00 Encounter for general adult medical examination without abnormal findings (principal); E78.5 Hyperlipidemia, unspecified
CPT/HCPCS: 36415; 80053; 80061; 84443; 85025

== ENCOUNTER 2022-10-04 11:54 | Emergency (ER) | payer MEDICARE, MEDICAID, SELFPAY ==
[2022-10-04 12:02] VITALS: BP 140/87; PULSE 98; RESP 16; TEMP 36.3; O2SAT 94; BMI 32.1
--- NOTE | 2022-10-04 13:32 | ED_ITS ---
HPI - Skin/Abscess/Foreign Bdy General Chief complaint: Skin/Abscess/Foreign Body Stated complaint: boil or cyst needs draining/lt inner thigh/wic s Time Seen by Provider: 10/04/22 13:17 Source: patient Mode of arrival: Ambulatory Limitations: no limitations History of Present Illness HPI narrative: 62-year-old female who is here for evaluation of what appears to be either a boil or an abscess or a cyst in her upper inner thigh/left buttock area. It has been there for the past couple days. She was started on antibiotics yesterday by walk-in clinic but no incision and drainage was performed. She is not have any problems with urination or bowel movements. Has never had anything like this in the past. 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 Related Data Home Medications Medication Instructions Recorded Confirmed [id number] 250 2 tab PO Q6H PRN 10/25/19 10/03/22 mg-250 mg-65 mg tablet (Excedrin Migraine) [id number] PO 08/22/22 10/03/22 [Neuriva Plus Brain Performance] ascorbic acid (vitamin C) 500 mg mg PO 08/22/22 10/03/22 capsule cholecalciferol (vitamin D3) 50 50 mcg PO DAILY 08/22/22 10/03/22 mcg (2,000 unit) capsule loratadine 10 mg tablet 10 mg PO DAILY 08/22/22 10/03/22 (Allerclear) magnesium 250 mg tablet 250 mg PO DAILY 08/22/22 10/03/22 mecobalamin (vitamin B12) 1,000 1,000 mcg PO DAILY 08/22/22 10/03/22 mcg chewable tablet Previous Rx's Medication Instructions Recorded Disabled Parking Permit #1 ea 09/14/20 trazodone 50 mg tablet 50 mg PO BEDTIME #90 tabs 06/28/21 halobetasol propionate 0.05 % 1 applic topical DAILY #50 grams 01/28/22 topical cream hydrocortisone 2.5 % topical cream 1 applic MO BID-QID PRN 07/06/22 with perineal applicator hemorrhoids #30 grams (Anusol-HC) nystatin 100,000 unit/gram topical 1 applic topical TID #30 grams 07/06/22 cream lisinopril 10 mg tablet 10 mg PO BEDTIME #90 tabs 08/22/22 pravastatin 20 mg tablet 20 mg PO BEDTIME #90 tabs 08/22/22 doxycycline hyclate 100 mg capsule 100 mg PO BID #14 caps 10/03/22 Allergies Allergy/AdvReac Type Severity Reaction Status Date / Time banana Allergy Severe Extreme Verified 10/04/22 11:15 cramping Penicillins Allergy Severe Swelling Verified 10/04/22 11:15 Review of Systems Constitutional Constitutional: Reports system reviewed and no additional complaints, except as documented Gastrointestinal Gastrointestinal: Reports system reviewed and no additional complaints, except as documented Genitourinary Genitourinary: Reports system reviewed and no additional complaints, except as documented Integumentary/Breasts Skin/Breast: Reports system reviewed and no additional complaints, except as documented Patient History Medical History Abnormal mammogram of left breast (11/2019) Abnormal mammogram of right breast (11/2019) Abnormal Pap smear of cervix Abscess of breast Anemia Anxiety Anxiety about health Atopic dermatitis in adult Back pain with sciatica Carpal tunnel syndrome Cervical cancer (~1977) Chest wall pain Chronic back pain Depression Dysarthria Fibrocystic breast Fibromyalgia Fractures GERD (gastroesophageal reflux disease) Heavy menstrual period Hyperlipidemia (~07/2019) Hypertension Infected cyst of Bartholin's gland duct Irregular menstrual cycle Left radial head fracture Lipoma Lumbar strain Lump of right breast (2018) Measles Mumps Osteoarthritis Painful menstrual periods Palpitations Sebaceous cyst of right axilla Urinary incontinence (~2019) Vertigo Well adult exam Surgical History Anesthesia History of neck surgery (~2003) History of partial hysterectomy Family History Grandmother Diabetes mellitus Social History marital status: unknown household members: friend(s) occupational status: unemployed Smoking Status: Former smoker alcohol intake: current substance use type: does not use Smoking Status: Former smoker Exam Initial Vital Signs Initial Vital Signs: Vital Signs Temperature 97.3 F L 10/04/22 12:02 Pulse Rate 98 H 10/04/22 12:02 Respiratory Rate 16 10/04/22 12:02 Blood Pressure 140/87 10/04/22 12:02 Pulse Oximetry 94 10/04/22 12:02 Oxygen Delivery Method Room Air 10/04/22 12:02 Const General: cooperative and comfortable GI Other: The abscess is separate from the rectum/anus. Skin Other: Patient with a 2 cm x 2 cm abscess on the lower left buttock. It does have a very small amount of surrounding erythema. It is tender to the touch. Some overlying ulcerations. No drainage. Neuro General: patient alert and moves all extremities Extrem General: capillary refill normal Procedures Abscess I/D I&D #1: Site: other (Left buttock) Side (if applicable): left Local Anesthetic: lidocaine 1% Amount of anesthesia used (mL): 5 Technique: incised with #11 blade Irrigation: No Packing used?: none Course Orders Ordered: Discontinued Medications Lidocaine HCl (Lidocaine 2% Inj Sdv 5ml) 5 ml INJ INTRA-OP ONE Stop: 10/04/22 13:35 Last Admin: 10/04/22 13:54 Dose: 5 ml Documented By: ANUJ Vital Signs Vital signs: Vital Signs - 8 hr 10/04/22 12:02 Temperature 97.3 F L Pulse Rate 98 H Respiratory Rate 16 Blood Pressure 140/87 Pulse Oximetry 94 Oxygen Delivery Method Room Air MDM - Skin/Abscess/Foreign Bdy MDM Narrative Medical decision making narrative: Patient does have a physical exam to the that is consistent with an abscess that was drained here as described above. It is distinct and separate from the r ectum/anus. No indication for radiologic studies. She is currently on antibiotics prescribed yesterday. I will have her continue to take these as directed. She was given care instructions and return precautions. She expressed understanding and agreement. Discharge Plan Departure Patient Disposition: Home Clinical Impression: Abscess Instructions: DI for Incision and Drainage of a Skin Abscess Activity Restrictions/Additional Instructions: I would expect some drainage from the area over the next couple days. You may need to keep it covered with a bandage like we discussed. You can shower like normal. Continue to take the antibiotics as directed. Return to the emergency department for new or worsening symptoms. Prescriptions: No Action doxycycline hyclate 100 mg capsule 100 mg PO BID Qty: 14 0RF (DME) Disabled Parking Permit See Rx Instructions .ROUTE .MEDSUPPLY Qty: 1 0RF Rx Instructions: Valid for 5 years halobetasol propionate 0.05 % cream 1 applic topical DAILY Qty: 50 12RF Rx Instructions: Apply a thin coat topically to affected areas at bedtime each night Excedrin Migraine 250-250-65 mg tablet 2 tab PO Q6H PRN trazodone 50 mg tablet 50 mg PO BEDTIME Qty: 90 1RF hydrocortisone [Anusol-HC] 2.5 % cream with perineal applicator 1 applic MO BID-QID PRN (Reason: hemorrhoids) Qty: 30 1RF nystatin 100,000 unit/gram cream 1 applic topical TID Qty: 30 1RF cholecalciferol (vitamin D3) 50 mcg (2,000 unit) capsule 50 mcg PO DAILY mecobalamin (vitamin B12) 1,000 mcg tablet,chewable 1,000 mcg PO DAILY magnesium 250 mg tablet 250 mg PO DAILY loratadine [Allerclear] 10 mg tablet 10 mg PO DAILY ascorbic acid (vitamin C) 500 mg capsule PO [id number] [Neuriva Plus Brain Performance] PO lisinopril 10 mg tablet 10 mg PO BEDTIME Qty: 90 3RF pravastatin 20 mg tablet 20 mg PO BEDTIME Qty: 90 3RF Referrals: Geovani Bell DO [Primary Care Provider] - Stand Alone Forms: Patient Portal/API
[2022-10-04] MEDS: LIDOCAINE 2% INJ SDV 5ML 5 ML INJ (13:54)
[2022-10-04 14:30] VITALS: BP 127/79; PULSE 93; RESP 20; O2SAT 97
== END 2022-10-04 14:38 | disposition home or self-care (01) ==
PROVIDERS: Emergency Provider Emergency Medicine; PCP Family Medicine
DX: L02.31 Cutaneous abscess of buttock (principal)
CPT/HCPCS: 10060; 99283

== ENCOUNTER → 2023-04-21 13:00 | Outpatient (CLI) | payer MEDICARE, MEDICAID, SELFPAY ==
--- NOTE | 2023-04-21 13:01 | DI.MG.S_ITS ---
BILATERAL DIGITAL SCREENING MAMMOGRAM 3D/2D WITH CAD: 04/21/2023 CLINICAL: Routine screening. Family history of breast cancer. Comparison is made to exams dated: 11/28/2019 mammogram - [facility], 01/06/2010 mammogram - [facility], 01/10/2020 mammogram, 12/23/2019 mammogram - [facility], and 02/17/2020 mammogram - [facility]. There are scattered areas of fibroglandular density in both breasts (category b / 25%-50% glandular tissue). Current study was also evaluated with a Computer Aided Detection (CAD) system. There is a biopsy clip in the right breast. There also are biopsy clips in the left breast. No significant masses, calcifications, or other findings are seen in either breast. There has been no significant interval change. IMPRESSION: NEGATIVE There is no mammographic evidence of malignancy. A 1 year screening mammogram is recommended. Based on Tyrer-Cuzick model (a risk assessment model), the patient's lifetime risk is 45.6% and her 10 year risk is 25.2%. If a patient has an elevated risk, a more comprehensive evaluation should be considered and/or a referral to a genetic counselor. The [employer], [employer], and NCCN Guidelines advise the consideration of Breast MRI as an adjunct to screening mammography in patients whose Lifetime risk to develop breast cancer is 20% or higher. This exam was interpreted at Station ID: [id number]. NOTE: For mammograms, a report in lay terms will be sent to the patient. Approximately 15% of breast malignancies will not be visualized mammographically. In the management of a palpable breast mass, a negative mammogram must not discourage biopsy of a clinically suspicious lesion. Electronically Signed By: Danny escobedo/garcía:04/25/2023 11:05:51 letter sent: Normal Exam ACR BI-RADS Category 1: Negative 3341F
== END ==
PROVIDERS: PCP Family Medicine; Referring Provider Family Medicine; Visit Provider Family Medicine
DX: Z12.31 Encounter for screening mammogram for malignant neoplasm of breast (principal); Z80.3 Family history of malignant neoplasm of breast
CPT/HCPCS: 77063; 77067

== ENCOUNTER → 2025-04-08 10:00 | Outpatient (CLI) | payer MEDICARE, MEDICAID, SELFPAY ==
--- NOTE | 2025-04-08 10:01 | DI.MG.S_ITS ---
MM screening mammo BI: 04/08/2025. BI-RADS: 2 CLINICAL: 65-year old female for bilateral screening mammogram. Tyrer-Cuzick lifetime risk of 7.2%. No personal or first-degree family history of breast cancer. Current reported family history of breast cancer: maternal aunt. The patient had prior bilateral breast biopsies. PRIOR EXAMS 04/21/2023, 07/27/2020, 02/17/2020, 02/06/2020. MAMMOGRAPHY TECHNIQUE: 2D and 3D (tomosynthesis) digital mammographic views obtained, with additional images as needed for full coverage. Current study was also evaluated with a Computer Aided Detection (CAD) system. DENSITY C. The breasts are heterogeneously dense, which may obscure small masses. MAMMOGRAPHY FINDINGS Right: Biopsy marker present on the right. There are no suspicious masses, calcifications, or other findings in the breast. Left: Biopsy markers present on the left. There are no suspicious masses, calcifications, or other findings in the breast. IMPRESSION: * No evidence of malignancy with benign findings. RECOMMENDATIONS Bilateral * Annual screening mammography. OVERALL ASSESSMENT CATEGORY BI-RADS-2: Benign. The [employer] recommends annual screening mammography beginning at age 40 for women with average risk of breast cancer. ELECTRONICALLY SIGNED: Shereen Caba M.D. on 04/08/2025 at 04:14:21 PM PT Interpreting Station ID: [id number]
== END ==
LOC: MAMMO 10:01
PROVIDERS: PCP Family Medicine; Referring Provider Family Medicine; Visit Provider Family Medicine
DX: Z12.31 Encounter for screening mammogram for malignant neoplasm of breast (principal); R92.333 Mammographic heterogeneous density, bilateral breasts; Z80.3 Family history of malignant neoplasm of breast
CPT/HCPCS: 77063; 77067